=== PATIENT | male | born 1950 | race Caucasian/White ===

== ENCOUNTER 2017-06-08 10:57 | Emergency (ER) | payer OTHER ==
[~2017-06-08] VITALS: Ht 170.2 cm; Wt 79.4 kg
[2017-06-08 11:15] VITALS: BP 134/80
--- NOTE | 2017-06-08 11:29 | PHYS DOC ---
Past History Past Medical History: Hypertension Past Surgical History: Knee Replacement Smoking: Non-smoker Alcohol Use: Occasionally Drug Use: None Adult General Chief Complaint Chief Complaint: FOOT INJURY PAIN HPI HPI 66-year-old male patient state large equipment fell on top of his body about 2 and half weeks ago and he was seen at another emergency room with evaluation but couple days after his splint if his pain in his left that does not getting better after almost 3 weeks. Patient states he did not have an x-ray of his foot at the day of injury. She states his pain happens only with walking as a aching pain and rated his pain 4/10. Patient denies other injuries or focal neuro deficit. Review of Systems Review of Systems Constitutional: Denies fever or chills [] Eyes: Denies change in visual acuity, redness, or eye pain [] HENT: Denies nasal congestion or sore throat [] Respiratory: Denies cough or shortness of breath [] Cardiovascular: No additional information not addressed in HPI [] GI: Denies abdominal pain, nausea, vomiting, bloody stools or diarrhea [] : Denies dysuria or hematuria [] Musculoskeletal: Denies back pain , reports joint pain [] Integument: Denies rash or skin lesions [] Neurologic: Denies headache, focal weakness or sensory changes [] Endocrine: Denies polyuria or polydipsia [] All other systems were reviewed and found to be within normal limits, except as documented in this note. Allergies Allergies Allergies Coded Allergies Type Severity Reaction Last Updated Verified No Known Drug Allergies 06/08/17 No Physical Exam Physical Exam Constitutional: Well developed, well nourished, no acute distress, non-toxic appearance. [] HENT: Normocephalic, atraumatic, Eyes: PERRLA, EOMI, conjunctiva normal, no discharge. [] Neck: Normal range of motion, no tenderness, supple, no stridor. [] Cardiovascular:Heart rate regular rhythm, no murmur [] Lungs & Thorax: Bilateral breath sounds clear to auscultation [] Extremities: Left foot without deformity, mild tenderness in base of second toe , ROM intact, no edema. [] Neurologic: Alert and oriented X 3, normal motor function, normal sensory function, no focal deficits noted. [] Psychologic: Affect normal, judgement normal, mood normal. [] EKG EKG [] Radiology/Procedures Radiology/Procedures [] [address] [id number] IMAGING REPORT Signed PATIENT: BEV WALLACE ACCOUNT: [id number] : 1950 LOCATION: ER AGE: 66 SEX: M EXAM STATUS: REG ER ORD. PHYSICIAN: JIE CULP MD REASON: injury 3 weeks ago PROCEDURE: FOOT LEFT 3V Indication: Left foot pain for 3 weeks.,. Technique: 3 views of the left foot. Comparison: None Findings: No dislocation. Punctate calcific density projecting lateral to the base of the proximal phalanx of the second toe measuring 2 mm. No soft tissue abnormality. No significant evidence of arthritic process. Impression: Punctate calcific density projecting lateral to the base of the proximal phalanx of the second toe may represent an avulsion fracture, age indeterminate. Correlate with focal tenderness. DICTATED AND SIGNED BY: ZINA MAZARIEGOS DO DATE: 06/08/17 112 CC: JIE CULP MD; NON,STAFF ~ Course & Med Decision Making Course & Med Decision Making Pertinent Imaging studies reviewed. (See chart for details) Evaluation of patient in ER showed 66-year-old female patient with injury to left foot 3 weeks ago and continuing to have pain. Patient had tenderness in base of the second toe and x-ray showed possible avulsion fracture of that area with undetermined age. Kelvin tape was placed and ortho shoes was provided and patient instructed to elevate his foot and avoid of bearing weight and follows with his primary care physician. [] Dragon Disclaimer Dragon Disclaimer This electronic medical record was generated, in whole or in part, using a voice recognition dictation system. Departure Departure: Impression: Primary Impression: Fracture, phalanx, foot Disposition: HOME, SELF-CARE (At 1145) Condition: STABLE Referrals: NON,STAFF (PCP) Patient Instructions: Avulsion Fracture Additional Instructions: Follow-up with your primary care physician in 3-5 days Return to ER if not getting better Scripts Naproxen (NAPROSYN) 500 Mg Tablet 1 TAB PO BID, #30 TAB 2 Refills Prov: JIE CULP MD 06/08/17 JIE CULP MD Jun 08, 2017 11:29
--- NOTE | 2017-06-08 11:33 | RAD ---
Indication: Left foot pain for 3 weeks.,. Technique: 3 views of the left foot. Comparison: None Findings: No dislocation. Punctate calcific density projecting lateral to the base of the proximal phalanx of the second toe measuring 2 mm. No soft tissue abnormality. No significant evidence of arthritic process. Impression: Punctate calcific density projecting lateral to the base of the proximal phalanx of the second toe may represent an avulsion fracture, age indeterminate. Correlate with focal tenderness.
[2017-06-08] MEDS ORDERED: NAPR-683 PO (11:46)
== END 2017-06-08 11:57 | disposition home or self-care (01) ==
LOC: ER 10:57
DX: S92.812A Other fracture of left foot, initial encounter for closed fracture (principal); I10 Essential (primary) hypertension; W20.8XXA Other cause of strike by thrown, projected or falling object, initial encounter; Y93.89 Activity, other specified; Y92.89 Other specified places as the place of occurrence of the external cause; Y99.9 Unspecified external cause status
CPT/HCPCS: 73630; 99284